=== PATIENT | female | born 1985 | race Caucasian/White ===

== ENCOUNTER 2023-09-17 20:18 | Emergency (ER) | payer OTHER, SELFPAY ==
--- NOTE | ~2023-09-17 | XR_ITS ---
EXAMINATION: XR chest 1V portable 09/17/2023 20:59 INDICATION: Cough and fever PROCEDURE: AP portable chest COMPARISON: 05/19/2016 FINDINGS: The lungs are clear. The cardiomediastinal silhouette is within normal limits. There are no pleural effusions. There is no pneumothorax suspected. The lungs are hyperinflated which is consistent with, but not diagnostic of chronic obstructive pulmo nary disease. IMPRESSION: 1: NO ACUTE CARDIOPULMONARY DISEASE. Reviewed, dictated and finalized at location A. K[facility] OFF
[2023-09-17 20:29] VITALS: BP 125/70; PULSE 100; RESP 20; TEMP 37.6; O2SAT 97
--- NOTE | 2023-09-17 20:41 | ED.GENADULT ---
HPI - General Adult General Chief complaint: Upper Respiratory Infection Stated complaint: uri, st Time Seen by Provider: 09/17/23 20:24 History of Present Illness HPI narrative: Mary is a previously healthy 38F that presented to clinic not feeling well. She started to have fatigue a few days ago that progressed to body aches, headache, rhinorrhea, cough, subjective fevers and a few episodes of non-bloody vomiting. No chest pain or dyspnea reported. Related Data Allergies Allergy/AdvReac Type Severity Reaction Status Date / Time acetaminophen [Vicodin] Allergy Intermediate Nausea Verified 09/17/23 20:28 hydrocodone [Vicodin] Allergy Intermediate Nausea Verified 09/17/23 20:28 Review of Systems Review of Systems: All systems reviewed & are unremarkable except as noted in HPI and below PMFSH Family History Family History (System 02/04/20 @ 08:09 by Mackenzie Dinero) Father Hypertension Sister Family history of thalassemia Family history of kidney stones Social History Social History (System 02/04/20 @ 08:09 by Mackenzie Dinero) Smoking status: Former smoker Exam Const: General: healthy appearing, comfortable, no acute distress, well developed, alert, awake and Physically active Orientation/consciousness: oriented to person, oriented to place and oriented to time HENMT: Head: normal to inspection, normocephalic and atraumatic Ears: hearing grossly normal bilaterally and external ears normal Face/Nose/Sinus: Normal external nose present Other: rhinorrhea present on exam as well as cough Eyes: General: appearance normal, both eyes and all related structures Periorbital: periorbital findings normal Sclera: sclerae normal Pupils: Equal, round and reactive pupils present Neck: Neck: normal visual inspection Chest: Chest palpation & inspection: normal inspection of the chest Resp: Effort & Inspection: normal respiratory effort, able to speak in complete sentences and no respiratory distress Auscultation: clear to auscultation bilaterally Cardio: Jugular venous distension: no JVD Rate: regular rate Rhythm: regular rhythm GI: Inspection: normal to inspection GI Palp: Yes Soft to palpation Auscultation: normal bowel sounds Skin: General skin exam: normal color and no rashes or lesions noted Neuro: General: oriented to person, oriented to place and oriented to time Cranial nerves: Yes Equal, round and reactive pupils present Extrem: General: normal to inspection Course Course Emergency Course: Ordered labs, CXR as well as viral swabs, fluids and zofran. EXAMINATION: XR chest 1V portable 09/17/2023 20:59 INDICATION: Cough and fever PROCEDURE:? AP portable chest COMPARISON: 05/19/2016 FINDINGS: The lungs are clear.? The cardiomediastinal silhouette is within normal limits.? There are no pleural effusions.? There is no pneumothorax suspected.? The lungs are hyperinflated which is consistent with, but not diagnostic of chronic obstructive pulmonary disease. IMPRESSION: 1:? NO ACUTE CARDIOPULMONARY DISEASE. +influenza B. She also had a microcytic anemia on her CBC. She also had mild hyponatremia and hypokalemia so 1L of NS was ordered as well as 40mEq of potassium Given dose of Tamiflu Vital Signs Vital signs: Vital Signs Temperature 99.6 F 09/17/23 20:29 Pulse Rate 100 09/17/23 20:29 Respiratory Rate 20 09/17/23 20:29 Blood Pressure 125/70 09/17/23 20:29 Pulse Oximetry 97 09/17/23 20:29 Oxygen Delivery Room Air 09/17/23 20:29 Temperature 99.6 F 09/17/23 20:29 Pulse Rate 100 09/17/23 20:29 Respiratory Rate 20 09/17/23 20:29 Blood Pressure 125/70 09/17/23 20:29 Pulse Oximetry 97 09/17/23 20:29 Oxygen Delivery Room Air 09/17/23 20:29 Medical Decision Making Vital Signs Vital Signs: Vital Signs Temperature 99.6 F 09/17/23 20:29 Pulse Rate 100 09/17/23 20:29 Respiratory Rate 20 09/17/23 20:29 Blood Pressure
[2023-09-17 21:04] LABS: Strep Group A RT-PCR NOT DETECTED (Negative)
[2023-09-17 21:06] LABS: Basophils Absolute Auto 0.01 K/mm3 (0.00-0.10); Basophils Percent Auto 0.1 % (0.0-1.0); Hematocrit 34.8 % (35.0-49.0); Immature Granulocyte Absolute 0.02 K/mm3 (0.00-0.00); Immature Granulocyte Percent A 0.3 % (0.0-0.0); Immature Platelet Fraction Pct 4.6 % (1.0-7.0); Lymphocytes Percent Auto 14.6 % (18.0-42.0); Mean Corpuscular HGB Conc 31.6 g/dL (32.0-36.0); Mean Corpuscular Hemoglobin 21.1 pg (27.0-31.0); Mean Corpuscular Volume 66.7 fL (78.0-102.0); Monocytes Absolute Auto 0.76 K/mm3 (0.10-0.90); Monocytes Percent Auto 11.1 % (2.0-11.0); Neutrophils Percent Auto 73.9 % (50.0-70.0); Platelet Count Result 170 K/mm3 (150-420); Red Blood Count 5.22 M/mm3 (4.20-5.40); Red Cell Distribution Width 15.7 % (11.6-14.4); White Blood Count 6.8 K/mm3 (4.8-10.8)
[2023-09-17 21:06] LABS: SARS-CoV-2 RNA PCR Negative (Negative)
[2023-09-17 21:08] LABS: Influenza A QL RT-PCR Negative (Negative); Influenza B QL RT-PCR Positive (Negative); RSV RNA, RT-PCR Negative (Negative)
[2023-09-17 21:17] LABS: Alanine Aminotransferase 23 U/L (14-59); Albumin Level 4.2 g/dL (3.4-5.0); Alkaline Phosphatase 60 U/L (46-116); Anion Gap 15 mmol/L (8-16); Aspartate Amino Transferase 23 U/L (15-37); Bilirubin,Total 1.4 mg/dL (0.00-1.00); Blood Urea Nitrogen 7 mg/dL (7-18); Calcium 8.8 mg/dL (8.5-10.1); Carbon Dioxide 23 mmol/L (21-32); Chloride 95 mmol/L (98-108); Estimated Glomerular Filt Rate > 60; Glucose 89 mg/dL (70-99); Osmolality Calculated 273 mOsm/kg (285-295); Potassium 3.1 mmol/L (3.5-5.1); Sodium 133 mmol/L (136-145); Total Protein 7.4 g/dL (6.4-8.2)
[2023-09-17] MEDS: ONDANSETRON INJ 4 MG/2 ML VIAL IV PUSH (21:48)
[2023-09-17] MEDS: POTASSIUM CHLORIDE 20 MEQ ER TABLET 40 MEQ PO (21:49)
[2023-09-17] MEDS: OSELTAMIVIR PHOSPHATE 75 MG CAPSULE PO (21:50)
[2023-09-17] MEDS: SODIUM CHLORIDE 0.9% IV 1,000 ML 999 ML IV CONT (21:52)
[2023-09-17 22:53] VITALS: PULSE 87; RESP 20; TEMP 37.2; O2SAT 99
== END 2023-09-17 22:54 | disposition home or self-care (01) ==
PROVIDERS: Emergency Provider Family Medicine
DX: J10.1 Influenza due to other identified influenza virus with other respiratory manifestations (principal); D50.9 Iron deficiency anemia, unspecified; E87.6 Hypokalemia; Z87.891 Personal history of nicotine dependence; Z20.822 Contact with and (suspected) exposure to COVID-19
CPT/HCPCS: 36415; 71045; 80053; 85025; 85055; 87637; 87651; 96361; 96374; 99284; A9270; J2405; J7030